=== PATIENT | female | born 1965 | race Caucasian/White ===

== ENCOUNTER 2017-12-08 16:04 | Emergency (ER) | payer OTHER ==
[~2017-12-08] VITALS: Ht 167.6 cm; Wt 74.8 kg
[2017-12-08] MEDS ORDERED: ULTRACET PO (20:06)
== END 2017-12-08 21:23 | disposition home or self-care (01) ==
LOC: ER 16:04
DX: S42.321A Displaced transverse fracture of shaft of humerus, right arm, initial encounter for closed fracture (principal); W18.39XA Other fall on same level, initial encounter; Y93.89 Activity, other specified; Y92.89 Other specified places as the place of occurrence of the external cause; Y99.8 Other external cause status

== ENCOUNTER → 2017-12-11 09:27 | Outpatient (CLI) | payer OTHER ==
[~2017-12-11 09:27] MED LIST: ULTRACET PO
== END | disposition home or self-care (01) ==
LOC: LAB 09:27
DX: E83.42 Hypomagnesemia (principal); Z76.89 Persons encountering health services in other specified circumstances; E55.9 Vitamin D deficiency, unspecified; E11.9 Type 2 diabetes mellitus without complications; E03.8 Other specified hypothyroidism

== ENCOUNTER 2019-09-28 15:37 | Outpatient (CLI) | payer OTHER | END 2019-09-28 15:51 | disposition home or self-care (01) | LOC: RAD 15:37 | DX: M25.562 Pain in left knee (principal); M25.561 Pain in right knee ==